=== PATIENT | female | born 1995 | race Asian ===

== ENCOUNTER 2018-09-29 10:08 | Inpatient (IN) | payer MEDICAID ==
[~2018-09-29] VITALS: Ht 154.9 cm; Wt 56.7 kg
[2018-09-29 11:03] LABS: BASOPHILS % 0.6 % (0.0-2.0); EOSINOPHILS % 1.9 % (0.0-5.0); HEMOGLOBIN. 11.8 g/dL (12.0-16.0); LYMPHOCYTES % 8.1 % (20.0-50.0); MEAN CORPUSCULAR HEMOGLOBIN 26.8 pg (28.0-32.0); MEAN CORPUSCULAR VOLUME 81.5 fL (81.0-99.0); MEAN PLATELET VOLUME 7.2 fl (7.4-10.4); NEUTROPHILS % 85.4 % (40.0-76.0); PLATELET 448 x1000/uL (130-400); RED BLOOD CELL COUNT 4.42 mill/uL (4.2-5.4); RED CELL DISTRIBUTION WIDTH 16.6 % (11.6-14.6)
[2018-09-29 11:09] LABS: CHLORIDE 109 mEq/L (98-107)
[2018-09-29 11:11] LABS: HCG SCREEN NEGATIVE
[2018-09-29] MEDS ORDERED: IOHEXOL-350 100 ML BOTTLE ONE (13:12)
[2018-09-29] MEDS ORDERED: AZITHROMYCIN 500 MG in DEXT 5% WATER 250 ML IV SCH (13:45)
[2018-09-29] MEDS ORDERED: CEFTRIAXONE 1 G PREMIX 50 ML IV ONE (13:45)
[2018-09-29 15:34] LABS: CLARITY URINE CLOUDY (CLEAR); COLOR URINE YELLOW (YELLOW); KETONES URINE NEGATIVE (NEGATIVE); LEUKOCYTE ESTERASE URINE 1+ (NEGATIVE); NITRITE URINE NEGATIVE (NEGATIVE); OCCULT BLOOD URINE TRACE (NEGATIVE); PROTEIN URINE 1+ (NEGATIVE); SPECIFIC GRAVITY URINE 1.058 (1.005-1.030); UROBILINOGEN URINE 0.2 E.U./dL (0.2-1.0)
[2018-09-29] MEDS ORDERED: ONDANSETRON HCL 4MG/2ML INJ IV PRN (19:30)
[2018-09-29] MEDS ORDERED: GUAIFENESIN 200MG/10ML SUGAR FREE UDC PO PRN (19:30)
[2018-09-29] MEDS ORDERED: IPRATROPIUM/ALBUTEROL 0.5-3(2.5)MG/3ML NEB INH PRN (19:30)
[2018-09-29] MEDS ORDERED: MAGNESIUM/ALUMINUM HYDROXIDE/SIMETHICONE 30ML UDC PO PRN (19:30)
[2018-09-29] MEDS ORDERED: CLONIDINE 0.1MG TABLET PO PRN (19:30)
[2018-09-29] MEDS ORDERED: DOCUSATE SODIUM 100MG CAPSULE PO PRN (19:30)
[2018-09-29] MEDS ORDERED: DIPHENHYDRAMINE 50MG/ML VIAL IV PRN (19:30)
[2018-09-29] MEDS ORDERED: MORPHINE SULFATE 2 MG/ML CPJ (NOT FOR IM USE) IV PRN (19:30)
[2018-09-29 19:54] LABS: PHOSPHORUS 3.2 mg/dL (2.5-4.9)
[2018-09-29 22:35] VITALS: BP 117/66
[2018-09-29 22:41] VITALS: BP 117/66
[2018-09-30] VITALS: BP 120/55
[2018-09-30 00:14] LABS: CREATINE KINASE MB FRACTION 6.7 ng/mL (0.5-3.6)
[2018-09-30] MEDS: HYDROCODONE/ACETAMINOPHEN 5/325MG TABLET PO PRN ×3 (01:09→18:55)
[2018-09-30 04:00] VITALS: BP 108/46
[2018-09-30 07:18] LABS: BASOPHILS % 0.3 % (0.0-2.0); EOSINOPHILS % 0.8 % (0.0-5.0); HEMATOCRIT. 33.2 % (36.0-48.0); HEMOGLOBIN. 10.9 g/dL (12.0-16.0); LYMPHOCYTES % 15.8 % (20.0-50.0); MEAN CORPUSCULAR HEMOGLOBIN 26.5 pg (28.0-32.0); MEAN CORPUSCULAR VOLUME 80.4 fL (81.0-99.0); MEAN PLATELET VOLUME 7.7 fl (7.4-10.4); MONOCYTES % 11.3 % (2.0-8.0); NEUTROPHILS % 71.8 % (40.0-76.0); PLATELET 386 x1000/uL (130-400); RED BLOOD CELL COUNT 4.12 mill/uL (4.2-5.4); RED CELL DISTRIBUTION WIDTH 16.1 % (11.6-14.6)
[2018-09-30 07:38] LABS: CHLORIDE 103 mEq/L (98-107)
[2018-09-30 07:49] LABS: CREATINE KINASE 519 IU/L (26-192)
[2018-09-30 07:50] LABS: HDL CHOLESTEROL 32 mg/dL (40-59)
[2018-09-30 07:52] LABS: LDL CHOLESTEROL 72 mg/dL (5-100)
[2018-09-30 07:56] LABS: CREATINE KINASE MB FRACTION 6.2 ng/mL (0.5-3.6)
[2018-09-30 08:00] VITALS: BP 97/51
[2018-09-30] MEDS ORDERED: POTASSIUM CHLORIDE 20MEQ TABLET SR PO NR (08:30)
[2018-09-30] MEDS: ENOXAPARIN 40MG/0.4ML SYR SUBCUT SCH (09:08)
[2018-09-30] MEDS ORDERED: MAGNESIUM 4 G PREMIX 100 ML IV NR (11:30)
[2018-09-30 12:00] VITALS: BP 101/55
[2018-09-30] MEDS ORDERED: CEFTRIAXONE 1 G PREMIX 50 ML IV SCH (15:00)
[2018-09-30 16:00] VITALS: BP 101/60
[2018-09-30] MEDS: CEFTRIAXONE 1 G PREMIX 50 ML IV SCH (17:39)
[2018-09-30 20:00] VITALS: BP 110/70
[2018-09-30] MEDS: ACETAMINOPHEN 325MG TABLET PO PRN (20:48)
[2018-10-01] VITALS: BP 115/65
[2018-10-01 04:00] VITALS: BP 105/60
[2018-10-01] MEDS: ACETAMINOPHEN 325MG TABLET PO PRN ×2 (04:41→21:54)
[2018-10-01 07:50] LABS: BASOPHILS % 0.5 % (0.0-2.0); EOSINOPHILS % 5.5 % (0.0-5.0); HEMATOCRIT. 33.1 % (36.0-48.0); MEAN CORPUSCULAR HEMOGLOBIN 26.8 pg (28.0-32.0); MEAN CORPUSCULAR VOLUME 80.5 fL (81.0-99.0); MEAN PLATELET VOLUME 7.7 fl (7.4-10.4); MONOCYTES % 9.2 % (2.0-8.0); NEUTROPHILS % 71.8 % (40.0-76.0); PLATELET 417 x1000/uL (130-400); RED BLOOD CELL COUNT 4.11 mill/uL (4.2-5.4); RED CELL DISTRIBUTION WIDTH 16.4 % (11.6-14.6)
[2018-10-01 08:00] VITALS: BP 101/65
[2018-10-01 08:16] LABS: CHLORIDE 108 mEq/L (98-107)
[2018-10-01 08:26] LABS: TOTAL IRON BINDING CAPACITY 126 ug/dL (250-450)
[2018-10-01] MEDS: ENOXAPARIN 40MG/0.4ML SYR SUBCUT SCH (08:47)
[2018-10-01] MEDS: HYDROCODONE/ACETAMINOPHEN 5/325MG TABLET PO PRN (08:47)
[2018-10-01] MEDS ORDERED: IBUP-2029 MT (11:45)
[2018-10-01 12:00] VITALS: BP 103/63
[2018-10-01] MEDS: CEFTRIAXONE 1 G PREMIX 50 ML IV SCH (17:20)
[2018-10-01 20:25] VITALS: BP 106/61
[2018-10-02] VITALS (7 sets, daily range): BP systolic 102–117; BP diastolic 55–71
[2018-10-02] MEDS: HYDROCODONE/ACETAMINOPHEN 5/325MG TABLET PO PRN (06:20)
[2018-10-02] MEDS: ENOXAPARIN 40MG/0.4ML SYR SUBCUT SCH (09:02)
[2018-10-02] MEDS ORDERED: IBUPROFEN 600MG TABLET PO PRN (14:30)
[2018-10-02 14:44] LABS: FERRITIN 314 ng/mL (10-291)
[2018-10-02 14:56] LABS: HEPATITIS B SURFACE ANTIGEN NEGATIVE
[2018-10-02 15:18] LABS: HEPATITIS A AB IGM NEGATIVE (NEGATIVE)
[2018-10-02] MEDS: CEFTRIAXONE 1 G PREMIX 50 ML IV SCH (17:37)
[2018-10-03 05:13] LABS: HIV SCREEN 4G Non Reactive (Non Reactive)
== END 2018-10-02 20:00 | disposition home or self-care (01) | DRG 139 ==
LOC: ER 10:41 → CANBEDREQ 16:23 → 5WST 18:13 → ENRESERV 20:55
PROVIDERS: ADMIT Internal Medicine; ATTEND Internal Medicine
DX: J18.9 Pneumonia, unspecified organism (principal); E83.42 Hypomagnesemia; D64.9 Anemia, unspecified; E87.6 Hypokalemia; E78.1 Pure hyperglyceridemia; S20.219A Contusion of unspecified front wall of thorax, initial encounter; R00.0 Tachycardia, unspecified; N39.0 Urinary tract infection, site not specified; R74.0 Nonspecific elevation of levels of transaminase and lactic acid dehydrogenase [LDH]; R82.71 Bacteriuria; Y93.89 Activity, other specified; Y92.410 Unspecified street and highway as the place of occurrence of the external cause; V89.2XXA Person injured in unspecified motor-vehicle accident, traffic, initial encounter; Y92.89 Other specified places as the place of occurrence of the external cause; Y99.8 Other external cause status
CPT/HCPCS: 36415; 71045; 71275; 80048; 80061; 82550; 82553; 82728; 83036; 83540; 83550; 83735; 83880; 84100; 84443; 84484; 84703; 86705; 86709; 86803; 87340; 87389; 93005; 93306; 93970; 99285; J0456; J0696; J1650; J3475; J7050; J7060; Q9967